=== PATIENT | female | born 1980 | race Two or more races ===

== ENCOUNTER → 2024-12-20 | Outpatient (CLI) | payer OTHER, SELFPAY ==
[2024-12-20 08:33] LABS: Collection Type, Urine Clean Catch; WBC,Urine 0 /hpf (0-5)
[2024-12-20 09:02] LABS: Basophils % (Auto) 1 % (0-2.5); Eosinophils # (Auto) 0.1 Thou/mm3 (0.0-0.5); Eosinophils % (Auto) 2 % (0-10); Hematocrit 37.7 % (36.0-46.0); Hemoglobin 12.7 g/dL (12.0-16.0); Immature Granulocytes % (Auto) 0 % (0-0); Immature Granulocytes Auto 0.01 Thou/mm3 (0.00-0.00); Lymphocytes # (Auto) 2.1 Thou/mm3 (1.0-4.8); Lymphocytes % (Auto) 36 % (10-50); Mean Corpuscular HGB Conc 33.7 g/dl (31.0-37.0); Mean Corpuscular Volume 80 fL (80-100); Monocytes # (Auto) 0.4 Thou/mm3 (0.0-0.8); Monocytes % (Auto) 7 % (0-12); Neutrophils # (Auto) 3.2 Thou/mm3 (1.8-7.7); Neutrophils % (Auto) 55 % (37-80); Nucleated Red Blood Cell % 0 /100 WBC (0); Platelet Count 331 Thou/mm3 (140-440); White Blood Count 5.8 Thou/mm3 (3.6-11.0)
[2024-12-20 09:06] LABS: Glucose Estimated Average 126 mg/dL (80-131)
[2024-12-20 09:10] LABS: Alanine Aminotransferase 29 U/L (10-49); Albumin, Serum 4.4 gm/dL (3.5-5.0); Albumin/Globulin Ratio 1.5 (1.2-2.2); Alkaline Phosphatase 120 U/L (46-116); Anion Gap 8 (7-16); Aspartate Amino Transferase 22 U/L (0-34); BUN/Creatinine Ratio 19 Ratio (12-20); Bilirubin,Total 0.2 mg/dL (0.3-1.2); Blood Urea Nitrogen 13 mg/dL (9-23); Calcium 8.8 mg/dL (8.3-10.6); Calcium (Corrected) 8.8 mg/dL (8.5-10.1); Carbon Dioxide 28.2 mMol/L (20.0-31.0); Chloride 106 mMol/L (98-107); Cholesterol 154 mg/dL (132-200); Creatinine (Component) 0.7 mg/dL (0.6-1.3); Glucose 128 mg/dL (74-106); HDL Cholesterol 51 mg/dL (40-60); LDL Cholesterol,Calculated 91 mg/dL (0-130); Osmolality,Calculated 285 (275-295); Potassium 4.3 mMol/L (3.4-5.1); Sodium 142 mMol/L (136-145); Thyroid Stimulating Hormone 1.93 uIU/mL (0.55-4.78); Total Protein 7.4 gm/dL (5.7-8.2); Triglycerides 60 mg/dL (30-150); eGFR > 60 See Note
[2024-12-20 09:14] LABS: Vitamin D 25 Hydroxy Total 64.9 ng/mL (7.3-40.2)
[2024-12-20 14:57] LABS: Bilirubin,Urine Negative (Negative); Blood,Urine Trace (Negative); Clarity,Urine Clear (Clear/Hazy); Color,Urine Lt-Yellow (Lt Yel-Yel); Culture Indicated,Urine Not Indicated; Glucose, Urine Negative (Negative); Ketones,Urine Negative (Negative); Leukocyte Esterase,Urine Negative (Negative); Nitrite,Urine Negative (Negative); Protein,Urine Negative (Neg - Trace); Urobilinogen,Urine Negative mg/dL (0.0-1.0)
[2024-12-20 16:46] LABS: Bacteria,Urine Rare; RBC,Urine 2 /hpf (0-3); Squamous Epithelial Cell,Urine 10 /hpf (0-5)
== END | disposition home or self-care (01) ==
LOC: COPL 07:49
PROVIDERS: PCP Family Medicine; Referring Provider Registered Nurse; Visit Provider Registered Nurse
DX: Z00.00 Encounter for general adult medical examination without abnormal findings (principal)
CPT/HCPCS: 36415; 80053; 80061; 81001; 82306; 83036; 84443; 85025